=== PATIENT | female | born 1980 | race Caucasian/White ===

== ENCOUNTER → 2016-07-22 | Outpatient (CLI) | payer MEDICAID | LOC: FIMAGING 08:17 | PROVIDERS: ATTEND Family Medicine | DX: M54.41 Lumbago with sciatica, right side (principal) ==

== ENCOUNTER → 2017-02-03 | Outpatient (CLI) | payer MEDICAID | LOC: FIMAGING 18:44 | DX: M75.82 Other shoulder lesions, left shoulder (principal); M75.52 Bursitis of left shoulder; M19.012 Primary osteoarthritis, left shoulder ==

== ENCOUNTER → 2017-04-26 | Outpatient (CLI) | payer MEDICAID | LOC: FIMAGING 14:50 | DX: M54.12 Radiculopathy, cervical region (principal) ==

== ENCOUNTER → 2017-07-29 | Outpatient (CLI) | payer MEDICAID | LOC: GIMAGING 14:50 | PROVIDERS: ATTEND Family Medicine | DX: M25.542 Pain in joints of left hand (principal); M25.541 Pain in joints of right hand | CPT/HCPCS: 73120-PO ==

== ENCOUNTER → 2018-08-07 | Outpatient (CLI) | payer MEDICAID | LOC: EMCIMAGING 14:56 | DX: M75.82 Other shoulder lesions, left shoulder (principal); M19.012 Primary osteoarthritis, left shoulder | CPT/HCPCS: 73221-PN ==

== ENCOUNTER → 2018-08-11 | Outpatient (CLI) | payer MEDICAID | LOC: EMCIMAGING 12:41 | PROVIDERS: ATTEND Family Medicine | DX: R22.1 Localized swelling, mass and lump, neck (principal) | CPT/HCPCS: 76536-PN ==